=== PATIENT | female | born 1955 | race Caucasian/White ===

== ENCOUNTER 2023-01-09 19:17 | Emergency (ER) | payer MEDICARE, MEDICAID, SELFPAY ==
--- NOTE | 2023-01-09 19:25 | XRR_ITS ---
PROCEDURE INFORMATION: Exam: XR Chest Exam date and time: 01/09/2023 7:37 PM Age: 67 years old Clinical indication: Other: Cant eat drink or sleep; Additional info: Weakness TECHNIQUE: Imaging protocol: Radiologic exam of the chest. Views: 1 view. COMPARISON: No relevant prior studies available. FINDINGS: Tubes, catheters and devices: Possible neurostimulator seen projecting over the left upper abdomen, with leads projecting over the midthoracic spine. Lungs: No consolidation, mass, or pulmonary edema. Pleural spaces: Unremarkable. No pleural effusion. No pneumothorax. Heart/Mediastinum: Unremarkable. No cardiomegaly. Bones/joints: No acute osseous abnormality. XR/XR chest 1V portable [id number] IMPRESSION: No acute findings.
[2023-01-09 19:33] VITALS: BP 187/92; PULSE 79; RESP 18; TEMP 36.8; O2SAT 97; BMI 23.4
--- NOTE | 2023-01-09 19:43 | CTR_ITS ---
PROCEDURE INFORMATION: Exam: CT Head Without Contrast Exam date and time: 01/09/2023 7:50 PM Age: 67 years old Clinical indication: Patient HX: Worsening general weakness with loss of appetite over last two weeks. TECHNIQUE: Imaging protocol: Computed tomography of the head without contrast. Radiation optimization: All CT scans at this facility use at least one of these dose optimization techniques: automated exposure control; mA and/or kV adjustment per patient size (includes targeted exams where dose is matched to clinical indication); or iterative reconstruction. REPORTING DATA: Count of CT and Cardiac NM exams in prior 12 months: This patient has received 0 known CTs and 0 known cardiac nuclear medicine studies in the 12 months prior to the current study. COMPARISON: No relevant prior studies available. RADIATION DOSE METRICS: Total DLP (mGy-cm): 989.88 FINDINGS: Brain: No acute intracranial hemorrhage, acute large territory infarct, or obvious mass lesion. Age appropriate diffuse cerebral volume loss. Chronic white matter changes, likely to be chronic small vessel ischemic changes. Cerebral ventricles: No ventriculomegaly. 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 No air-fluid levels. Mastoid air cells: Visualized mastoid air cells are well aerated. Bones/joints: Unremarkable. No acute fracture. Soft tissues: Unremarkable. CT/CT head wo con* [id number] IMPRESSION: No acute intracranial abnormality.
--- NOTE | 2023-01-09 19:48 | W.ED.WEAKNES ---
HPI - Weakness General: Chief complaint: Weakness Stated complaint: cant eat, drink, weakness Time Seen by Provider: 01/09/23 19:26 Source: patient Mode of arrival: ambulatory Limitations: no limitations History of Present Illness: 67-year-old female states she has had extreme weakness over the last 2 weeks states she is not been wanting to eat or drinks had some difficulty swallowing states she is also had a cough. States she saw her PCP she been on 2 antibiotics and states she is worsened states that today she is so weak that she cannot ambulate she denies any fevers denies any pain. Associated symptoms: Denies chest pain, chills, dysuria, fever(s), headache(s), nausea or vomiting Review of Systems Const: Reports: change in appetite, fatigue and malaise; Denies: fever(s) or chills Eyes: Denies: blurry vision or eye discomfort ENMT: Denies: throat pain or dental pain Card: Denies: chest pain Resp: Reports: non-productive cough; Denies: dyspnea GI: Denies: abdominal pain, nausea, vomiting or diarrhea : Denies: dysuria Musc: Denies: neck pain or back pain Skin/Breast: Denies: rash Neuro: Denies: headache(s) Physical Exam Const: COMMON NORMALS: patient oriented x3 HENMT: COMMON NORMALS: normocephalic and atraumatic HEAD & SCALP: normocephalic and atraumatic Eye: COMMON NORMALS: Equal, round and reactive pupils present and EOMs intact bilaterally PUPIL: Yes Equal, round and reactive pupils present Neck/C-Spine: COMMON NORMALS: full ROM and supple Chest: COMMONS NORMALS: normal inspection of the chest and normal palpation of entire chest wall Resp: COMMON NORMALS: normal respiratory effort, No retractions, No use of accessory muscles and clear to auscultation bilaterally AUSCULTATION: clear to auscultation bilaterally Cardio: COMMON NORMALS: regular rate, regular rhythm and No murmurs present (Cardio) RATE: regular rate RHYTHM: regular rhythm GI: COMMON NORMALS: Normal to inspection, nondistended, normoactive bowel sounds present, Soft to palpation, non-tender and no masses PALPATION: Yes Soft to palpation Extremity: COMMON NORMALS: normal to inspection and full ROM Neuro: COMMON NORMALS: patient oriented x3, moves all extremities and no focal motor deficits Psych: COMMON NORMALS: mental status grossly normal, Normal thought process present and cooperative THOUGHT PROCESS: Normal thought process present Skin: COMMON NORMALS: no rashes or lesions noted and no wounds GENERAL SKIN EXAM: no rashes or lesions noted Course Vital Signs: Vital signs: Vital Signs Temperature 98.2 F 01/09/23 19:33 Pulse Rate 94 01/09/23 23:33 Respiratory Rate 18 01/09/23 19:33 Blood Pressure 137/83 01/09/23 23:33 Pulse Oximetry 97 01/09/23 23:33 Oxygen Delivery Me thod Room Air 01/09/23 20:46 MDM - Weakness Medical Decision Making Patient presents here with generalized weakness along with some difficulty swallowing. All her blood work and imaging here are normal I did offer admission for her weakness she states she does not want to stay in the hospital we will get her follow-up she is to return if worsening she understands agrees to plan. Lab Data 01/09/23 20:10 01/09/23 20:10 Radiology Impressions Chest X-Ray 01/09/23 19:25 IMPRESSION: No acute findings. Head CT 01/09/23 19:43 IMPRESSION: No acute intracranial abnormality. Laboratory Results WBC 9.6 10^3/uL (4.0-10.0) 01/09/23 20:10 RBC 4.55 10^6/uL (4.1-5.3) 01/09/23 20:10 Hgb 14.2 g/dL (11.5-15.3) 01/09/23 20:10 Hct 41.1 % (37.0-47.0) 01/09/23 20:10 MCV 90.3 fl (81-99) 01/09/23 20:10 MCH 31.2 pg (28.0-34.0) 01/09/23 20:10 MCHC 34.5 g/dL (30.0-36.0) 01/09/23 20:10 RDW 12.7 % (12.1-15.1) 01/09/23 20:10 Plt Count 354 10^3/cmm (130-400) 01/09/23 20:10 MPV 9.5 fL (7.4-10.4) 01/09/23 20:10 Neut % (Auto) 44.2 % 01/09/23 20:10 Lymph % (Auto) 45.1 % 01/09/23 20:10 [place] % (Auto) 8.5 % 01/09/23 20:10 Eos % (Auto) 1.6 % 01/09/23 20:10 Baso % (Auto) 0.4 % 01/09/23 20:10 Neut # (Auto) 4.26 10^3/uL (1.8-7.7) 01/09/23 20:10 Lymph # (Auto) 4.4 10^3/uL (0.8-4.8) 01/09/23 20:10 [place] # (Auto) 0.8 10^3/uL (0.2-0.9) 01/09/23 20:10 Eos # (Auto) 0.2 10^3/uL (0.0-0.8) 01/09/23 20:10 Baso # (Auto) 0.0 10^3/uL (0.0-0.1) 01/09/23 20:10 Nucleated RBC % (auto) 0 % 01/09/23 20:10 Nucleated RBCs # 0.0 /100WBC 01/09/23 20:10 Sodium 142 mmol/L (136-145) 01/09/23 20:10 Potassium 3.6 mmol/L (3.5-5.1) 01/09/23 20:10 Chloride 102 mmol/L (98-107) 01/09/23 20:10 Carbon Dioxide 25 mmol/L (22-29) 01/09/23 20:10 Anion Gap 18.6 (5-19) 01/09/23 20:10 BUN 9 mg/dL (8-23) 01/09/23 20:10 Creatinine 0.7 mg/dL (0.5-0.9) 01/09/23 20:10 GFR Calculation 83.5 mL/min (90-130) L 01/09/23 20:10 Glucose 120 mg/dL (65-115) H 01/09/23 20:10 Calculated Osmolality 294 mOsm/kg (285-295) 01/09/23 20:10 Calcium 9.5 mg/dL (8.5-10.5) 01/09/23 20:10 Total Bilirubin 0.5 mg/dL (0.15-1.2) 01/09/23 20:10 AST 16 U/L (0-32) 01/09/23 20:10 ALT 10 U/L (0-33) 01/09/23 20:10 Alkaline Phosphatase 48 U/L (35-105) 01/09/23 20:10 Total Protein 7.1 g/dL (6.6-8.7) 01/09/23 20:10 Albumin 4.5 g/dL (3.5-5.2) 01/09/23 20:10 Globulin 2.6 g/dL (1.3-4.6) 01/09/23 20:10 Lipase 24 U/L (13-60) 01/09/23 20:10 Urine Color Yellow (Yellow) 01/09/23 20:55 Urine Appearance Clear (CLEAR) 01/09/23 20:55 Urine pH 6 (5-7) 01/09/23 20:55 Ur Specific [place] 1.010 (1.005-1.030) 01/09/23 20:55 Urine Protein Neg (Negative) 01/09/23 20:55 Urine Glucose (UA) Norm (Normal) 01/09/23 20:55 Urine Ketones 1+ (Negative) H 01/09/23 20:55 Urine Blood Neg (Negative) 01/09/23 20:55 Urine Nitrate Negative (Negative) 01/09/23 20:55 Urine Bilirubin Neg (Negative) 01/09/23 20:55 Urine Urobilinogen Norm mg/dL (Negative) 01/09/23 20:55 Ur Leukocyte Esterase Trace (Negative) H 01/09/23 20:55 Urine RBC 0-4 /hpf (0-2) H 01/09/23 20:55 Urine WBC 0-4 /hpf (0-5) H 01/09/23 20:55 Ur Squamous Epith Cells 0-4 /hpf (0-5) H 01/09/23 20:55 Amorphous Sediment Not Reportable 01/09/23 20:55 Urine Bacteria Trace /hpf (NONE) 01/09/23 20:55 Urine Mucus Trace /hpf 01/09/23 20:55 Coronavirus 229E (PCR) Not detected (NOT DETECT) 01/09/23 20:10 SARS-CoV-2 (PCR) Not detected (NOT DETECT) 01/09/23 20:10 Discharge Plan Discharge Patient Disposition: Home Clinical Impression: Weakness, Difficulty in swallowing Condition: Stable Discharge Orders: Discharge ED (Routine); Ordered 01/09/23 Ordered By: Nalini Chase Referrals: Josh Talbot DO [Physician] - 1-3 days Discharge Diet: Advance as tolerated Discharge Activity: Resume usual activity Patient Instructions: Weakness (ED), Dysphagia (ED) Coding Level of Care Code ED Transmission Engineer for Rj Koroma
[2023-01-09] MEDS: sodium chloride 0.9% 1,000 ML 999 ML IV (20:09)
[2023-01-09 20:26] LABS: Basophils % 0.4 %; Eosinophils # 0.2 10^3/uL (0.0-0.8); Eosinophils % 1.6 %; Hematocrit 41.1 % (37.0-47.0); Hemoglobin 14.2 g/dL (11.5-15.3); Lymphocytes # 4.4 10^3/uL (0.8-4.8); Lymphocytes % 45.1 %; Mean Corpuscular HGB Conc 34.5 g/dL (30.0-36.0); Mean Corpuscular Hemoglobin 31.2 pg (28.0-34.0); Mean Corpuscular Volume 90.3 fl (81-99); Mean Platelet Volume 9.5 fL (7.4-10.4); Monocytes # 0.8 10^3/uL (0.2-0.9); Monocytes % 8.5 %; Neutrophils # 4.26 10^3/uL (1.8-7.7); Neutrophils % 44.2 %; Nucleated Red Blood Cells % 0 %; Platelet Count 354 10^3/cmm (130-400); Red Blood Count 4.55 10^6/uL (4.1-5.3); Red Cell Distribution Width 12.7 % (12.1-15.1); White Blood Count 9.6 10^3/uL (4.0-10.0)
--- NOTE | 2023-01-09 20:35 | PC.NURSE ---
this food writer was at the nurses station and pts family member came up and asked for a blanket. pts brother stated 'just so you know Yoselin is going to take her anxiety medicine that is prescribed to her.' i told the family member i was waiting on physician to give orders for anxiety medication she could take here but pts brother said pt has already taken medication. pt took 0.25mg of Klonopin at 2020.
[2023-01-09 20:46] VITALS: BP 205/103; PULSE 80; O2SAT 94
[2023-01-09 20:50] LABS: Alanine Aminotransferase 10 U/L (0-33); Albumin Level 4.5 g/dL (3.5-5.2); Alkaline Phosphatase 48 U/L (35-105); Anion Gap 18.6 (5-19); Aspartate Amino Transferase 16 U/L (0-32); Blood Urea Nitrogen 9 mg/dL (8-23); Calcium 9.5 mg/dL (8.5-10.5); Carbon Dioxide 25 mmol/L (22-29); Chloride 102 mmol/L (98-107); Globulin 2.6 g/dL (1.3-4.6); Glomerular Filtration Rate 83.5 mL/min (90-130); Glucose 120 mg/dL (65-115); Lipase 24 U/L (13-60); Osmolality Calculated 294 mOsm/kg (285-295); Potassium 3.6 mmol/L (3.5-5.1); Sodium 142 mmol/L (136-145); Total Bilirubin 0.5 mg/dL (0.15-1.2); Total Protein 7.1 g/dL (6.6-8.7)
[2023-01-09 21:35] LABS: Add Urine Microscopic? YES; Bilirubin Urine Neg (Negative); Blood Urine Neg (Negative); Glucose Urine UA Norm (Normal); Ketones Urine 1+ (Negative); Leukocyte Esterase Urine Trace (Negative); Nitrate Urine Negative (Negative); Protein Urine Neg (Negative); Urine Appearance Clear (CLEAR); Urine Color Yellow (Yellow); Urobilinogen Urine Norm (Negative); pH Urine 6 (5-7)
[2023-01-09 21:37] LABS: Add Urine Culture? No; Bacteria Urine TRACE /hpf; Mucus Urine TRACE /hpf; RBC Urine 0-4 /hpf (0-2); Squamous Epithelial Cell Urine 0-4 /hpf (0-5); WBC Urine 0-4 /hpf (0-5)
[2023-01-09 22:11] LABS: Adenovirus Not Detected (NOT DETECT); Chlamydia Pneumoniae Not Detected (NOT DETECT); Coronavirus 229E,HKU1,NL63,OC4 Not Detected (NOT DETECT); Human Metapneumovirus Not Detected (NOT DETECT); Human Rhinovirus/Enterovirus Not Detected (NOT DETECT); Influenza A Not Detected (NOT DETECT); Influenza A H1 Not Detected (NOT DETECT); Influenza A H1-2009 Not Detected (NOT DETECT); Influenza A H3 Not Detected (NOT DETECT); Influenza B Not Detected (NOT DETECT); Mycoplasma Pneumoniae Not Detected (NOT DETECT); Parainfluenza Virus Type 1 Not Detected (NOT DETECT); Parainfluenza Virus Type 2 Not Detected (NOT DETECT); Parainfluenza Virus Type 3 Not Detected (NOT DETECT); Parainfluenza Virus Type 4 Not Detected (NOT DETECT); Respiratory Syncytial Virus A Not Detected (NOT DETECT); Respiratory Syncytial Virus B Not Detected (NOT DETECT); SARS-COV-2 Not Detected (NOT DETECT)
[2023-01-09 23:33] VITALS: BP 137/83; PULSE 94; O2SAT 97
--- NOTE | 2023-01-10 08:57 | DCPLANNER ---
Addendum entered by Saige Shook 01/13/23 15:06: manager radiation received the following message from the general surgery clinic regarding follow up appointment: called pt no answer mailbox full. 3rd attempt at trying to reach patient. Mailed patient a form to let her know we have been trying to reach her and to call us to schedule and zenaida. On 01/12/23 @ 10:30 Rigoberto Chaudhry Wrote To General Surgery Front Off Called pt mailbox full > 01/12/23 On 01/11/23 @ 11:40 Rigoberto Chaudhry Wrote To General Surgery Front Off Called patient no vm 01/11. Addendum entered by Saige Shook 01/12/23 13:16: manager radiation received the following message from the general surgery clinic regarding follow up appointment: Called pt mailbox full > 01/12/23 On 01/11/23 @ 11:40 Rigoberto Chaudhry Wrote To General Surgery Front Off Called patient no vm 01/11 Original Note: manager radiation had message to schedule a follow up appointment for patient with general surgery. manager radiation sent patients information to the front office staff at general surgery. Patients information will be printed and reviewed. Clinic will call patient with appointment information.
--- NOTE | 2023-01-11 13:38 | DCPLANNER ---
intelligence manager called patient due to no primary care physician - no answer at this time.
--- NOTE | 2023-02-02 11:45 | DCPLANNER ---
manager of medical called patient due to no primary care physician - called phone number [phone] - just got a busy signal.
== END 2023-01-09 23:36 | disposition home or self-care (01) ==
PROVIDERS: Emergency Provider Emergency Medicine
DX: R53.1 Weakness (principal); R13.10 Dysphagia, unspecified
CPT/HCPCS: 70450; 71045; 80053; 81001; 83690; 85025; 87635; 96360; 99285; J7030

== ENCOUNTER 2023-01-12 10:05 | Emergency (ER) | payer MEDICARE, MEDICAID, SELFPAY ==
[2023-01-12 10:11] VITALS: BP 154/73; PULSE 84; RESP 17; TEMP 36.6; O2SAT 93; BMI 21.7
[2023-01-12 10:39] VITALS: BP 154/73; RESP 18; O2SAT 92
--- NOTE | 2023-01-12 10:39 | ECG_ITS ---
[facility] Test Date: 2023-01-12 Pat Name: Yoselin Castaneda Department: Room: Gender: Female Lead Refiner: : 1955 Requested By: Xochitl Hong Order Number: [id number] Erin MD: Tr Alvarez M.D. Measurements Intervals [place] Rate: 81 P: 56 ME: 195 QRS: 60 QRSD: 89 T: 70 QT: 404 QTc: 471 Interpretive Statements SINUS RHYTHM LOW QRS VOLTAGE IN PRECORDIAL LEADS [QRS DEFLECTION < 1.0 mV IN CHEST LEADS] MINIMAL ST DEPRESSION [0.025+ mV ST DEPRESSION] No previous ECG available for comparison Electronically Signed On 01-12-2023 14:46:42 CDT by Tr Alvarez M.D. [id number]
--- NOTE | 2023-01-12 10:39 | XRR_ITS ---
PROCEDURE INFORMATION: Exam: XR Chest Exam date and time: 01/12/2023 11:06 AM Age: 67 years old Clinical indication: Shortness of breath; Additional info: SOB TECHNIQUE: Imaging protocol: Radiologic exam of the chest. Views: 1 view. COMPARISON: CR (CHEST, ) 01/09/2023 7:37 PM FINDINGS: Tubes, catheters and devices: Intact neurostimulator leads terminate at the midthoracic level. Lungs: Unremarkable. No consolidation. Pleural spaces: Unremarkable. No pleural effusion. No pneumothorax. Heart/Mediastinum: Unremarkable. No cardiomegaly. Bones/joints: Unremarkable. XR/XR chest 1V portable [id number] IMPRESSION: No acute findings.
--- NOTE | 2023-01-12 11:02 | CT_ITS ---
WS: [id number] CT NECK WITH CONTRAST HISTORY: dysphagia, muffled voice, smoker TECHNIQUE: Contiguous 5 mm axial images are performed through the neck with intravenous contrast. Sag ittal and coronal reformats are also submitted. All CT scans at [facility] use at least one o f these dose optimization techniques: automated exposure control; mA and/or kV adjustment per patient size (includes targeted exams where dose is matched to clinical indication); or iterative reconstruc tion. CONTRAST: CONTRAST: Omnipaque 350; 100 mL IV. DLP: 148.73 mGy.cm COMPARISON: None available. Nasopharynx, oropharynx, hypopharynx and larynx are unremarkable. No soft tissue masses or abnormal e nhancement. Questionable very minimal prominence of the epiglottis. There is no compromise of the air way. Torus tubarius and fossa of Rosenmuller and parapharyngeal fat are normal. No significant lymphadenopathy is identified. Thyroid gland and salivary glands are normally enhancing with no masses. Mild cervical spondylosis. Visualized portions of the skull base demonstrate no abnormalities. Orbits and globes are within norm al limits. No soft tissue masses. Partially calcified mass in the right maxillary sinus. Probably from chronic sinus disease. No air-fl uid levels. Lung apices are clear. IMPRESSION: 1. No neck mass or adenopathy. 2. Very minimally prominent epiglottis. There is no compromise of the airway. No neck mass.
[2023-01-12 11:08] LABS: Basophils % 0.4 %; Eosinophils # 0.1 10^3/uL (0.0-0.8); Eosinophils % 1.2 %; Hematocrit 41.1 % (37.0-47.0); Hemoglobin 13.7 g/dL (11.5-15.3); Lymphocytes % 34.9 %; Mean Corpuscular HGB Conc 33.3 g/dL (30.0-36.0); Mean Corpuscular Hemoglobin 31.5 pg (28.0-34.0); Mean Corpuscular Volume 94.5 fl (81-99); Mean Platelet Volume 9.5 fL (7.4-10.4); Monocytes # 0.4 10^3/uL (0.2-0.9); Monocytes % 4.8 %; Neutrophils # 4.95 10^3/uL (1.8-7.7); Neutrophils % 58.5 %; Nucleated Red Blood Cells % 0 %; Platelet Count 263 10^3/cmm (130-400); Red Blood Count 4.35 10^6/uL (4.1-5.3); White Blood Count 8.5 10^3/uL (4.0-10.0)
--- NOTE | 2023-01-12 11:23 | ED_ITS ---
HPI - SOB/Dyspnea General: Chief Complaint: Shortness of Breath/Dyspnea Stated Complaint: SOB Time Seen by Provider: 01/12/23 10:19 Source: patient and family Mode of arrival: wheelchair Limitations: no limitations History of Present Illness: HPI Narrative: Patient is a 67-year-old female here with complaints of difficulty swallowing and shortness of breath. She states she has had dysphagia over the past 2 to 3 weeks and it seems to progressively be worsening. She states she is able to hold down liquids and soft foods but family states she gets choked up easily . She states she is not having any pain. She is continuing to take her medications normally. She is an everyday smoker. She does not complain of any chest pain. She has not had any worsening cough apart from her baseline. No increase in sputum production. She states she is scheduled for a barium swallow test in [place] on Tuesday. MD elicited complaint: shortness of breath Pertinent past history: COPD Onset (ago): day(s) Timing: constant Severity: moderate Exacerbating factors: other (swallowing) Relieving factors: nothing Known history of: COPD Associated symptoms: Reports chest congestion; Deny abdominal pain, chest pain, dizziness, extremity pain, fever(s), hemoptysis, lightheadedness, nausea, orthopnea, palpitations, syncope or vomiting Treatment prior to arrival: none Related Data: Home oxygen amount: none Review of Systems Const: Denies: fever(s), chills, body aches, fatigue or malaise ENMT: Reports: other (trouble swallowing); Denies: throat pain or odynophagia Card: Denies: chest pain, palpitations, irregular heart rhythm, edema, swelling of feet/ankles, lightheadedness, syncope, pre-syncope, orthopnea, leg pain with exertion or acrocyanosis Resp: Reports: dyspnea, productive cough and chest congestion; Denies: wheezing or hemoptysis GI: Denies: abdominal pain, nausea, vomiting or diarrhea : Denies: flank pain, dysuria or hematuria Musc: Denies: neck pain, back pain, extremity pain or joint pain Skin/Breast: Denies: rash Neuro: Denies: headache(s), numbness in extremities, weakness in extremities, sensory changes or dizziness Physical Exam Const: COMMON NORMALS: no acute distress, average body habitus, patient oriented x3, no limitations, alert and well nourished GENERAL APPEARANCE: cooperative ORIENTATION/CONSCIOUSNESS: Yes awake, Yes oriented to person, Yes oriented to place and Yes oriented to time HENMT: FACE & SINUS: normal facial exam MOUTH: Normal oral and palatal mucosa present, lip normal and tongue normal TEETH & GINGIVA: Yes edentulous THROAT: posterior oropharynx normal, tonsils normal and uvula midline Neck/C-Spine: COMMON NORMALS: full ROM, no lymphadenopathy, no meningeal signs and no JVD GENERAL: Yes normal visual inspection, No anterior neck swelling and No submandibular swelling Resp: COMMON NORMALS: normal respiratory effort and clear to auscultation [place] aterally AUSCULTATION: clear to auscultation bilaterally Cardio: COMMON NORMALS: no JVD, regular rate and regular rhythm RATE: regular rate RHYTHM: regular rhythm Neuro: COMMON NORMALS: patient oriented x3 SENSORIUM/ORIENTATION: Yes alert, Yes oriented to person, Yes oriented to place and Yes oriented to time MENINGEAL SIGNS: Yes no meningeal signs Skin: COMMON NORMALS: no rashes or lesions noted GENERAL SKIN EXAM: no rashes or lesions noted Course Vital Signs: Vital signs: Vital Signs Temperature 97.8 F 01/12/23 10:11 Pulse Rate 84 01/12/23 10:11 Respiratory Rate 18 01/12/23 10:39 Blood Pressure 175/75 01/12/23 11:47 Pulse Oximetry 93 01/12/23 12:41 Oxygen Delivery Me thod Room Air 01/12/23 12:41 MDM - SOB/Dyspnea Medical Decision Making Patient appears in no acute distress. Her vital signs are stable. She states she is able to hold down liquids, soft foods, and is taking all of her medica tions. She has an upcoming barium swallow test scheduled for Tuesday which I feel is appropriate. Blood work here is unremarkable. Her CXR showing no acute findings. CT neck obtained due to complaint of dysphagia and history of chronic smoking which is essentially normal. Radiologist did comment on a minimally prominent epiglottis. Certainly based on patient's history and clinical presentation I have no concern for acute epiglottitis. Patient most likely has undiagnosed COPD explaining the dyspnea. There is nothing at this time to suggest aspiration pneumonia. Well score of 0 for PE. At this time recommend she follow-up with her primary care provider in continue current plan for barium swallow test on Tuesday. We did discuss obtaining outpatient CT chest scan for lung cancer screening based on her smoking history. Patient and family verbalized understanding of recommendations. Lab Data 01/12/23 11:00 01/12/23 11:00 Labs/Radiology: Radiology Impressions Chest X-Ray 01/12/23 10:39 IMPRESSION: No acute findings. Laboratory Results WBC 8.5 10^3/uL (4.0-10.0) 01/12/23 11:00 RBC 4.35 10^6/uL (4.1-5.3) 01/12/23 11:00 Hgb 13.7 g/dL (11.5-15.3) 01/12/23 11:00 Hct 41.1 % (37.0-47.0) 01/12/23 11:00 MCV 94.5 fl (81-99) 01/12/23 11:00 MCH 31.5 pg (28.0-34.0) 01/12/23 11:00 MCHC 33.3 g/dL (30.0-36.0) 01/12/23 11:00 RDW 13.0 % (12.1-15.1) 01/12/23 11:00 Plt Count 263 10^3/cmm (130-400) 01/12/23 11:00 MPV 9.5 fL (7.4-10.4) 01/12/23 11:00 Neut % (Auto) 58.5 % 01/12/23 11:00 Lymph % (Auto) 34.9 % 01/12/23 11:00 [place] % (Auto) 4.8 % 01/12/23 11:00 Eos % (Auto) 1.2 % 01/12/23 11:00 Baso % (Auto) 0.4 % 01/12/23 11:00 Neut # (Auto) 4.95 10^3/uL (1.8-7.7) 01/12/23 11:00 Lymph # (Auto) 3.0 10^3/uL (0.8-4.8) 01/12/23 11:00 [place] # (Auto) 0.4 10^3/uL (0.2-0.9) 01/12/23 11:00 Eos # (Auto) 0.1 10^3/uL (0.0-0.8) 01/12/23 11:00 Baso # (Auto) 0.0 10^3/uL (0.0-0.1) 01/12/23 11:00 Nucleated RBC % (auto) 0 % 01/12/23 11:00 Nucleated RBCs # 0.0 /100WBC 01/12/23 11:00 Sodium 142 mmol/L (136-145) 01/12/23 11:00 Potassium 3.8 mmol/L (3.5-5.1) 01/12/23 11:00 Chloride 104 mmol/L (98-107) 01/12/23 11:00 Carbon Dioxide 24 mmol/L (22-29) 01/12/23 11:00 Anion Gap 17.8 (5-19) 01/12/23 11:00 BUN 7 mg/dL (8-23) L 01/12/23 11:00 Creatinine 0.7 mg/dL (0.5-0.9) 01/12/23 11:00 GFR Calculation 83.5 mL/min (90-130) L 01/12/23 11:00 Glucose 138 mg/dL (65-115) H 01/12/23 11:00 Calculated Osmolality 294 mOsm/kg (285-295) 01/12/23 11:00 Calcium 9.2 mg/dL (8.5-10.5) 01/12/23 11:00 Total Bilirubin 0.4 mg/dL (0.15-1.2) 01/12/23 11:00 AST 14 U/L (0-32) 01/12/23 11:00 ALT 10 U/L (0-33) 01/12/23 11:00 Alkaline Phosphatase 47 U/L (35-105) 01/12/23 11:00 Total Protein 6.9 g/dL (6.6-8.7) 01/12/23 11:00 Albumin 4.3 g/dL (3.5-5.2) 01/12/23 11:00 Globulin 2.6 g/dL (1.3-4.6) 01/12/23 11:00 Discharge Plan Discharge Patient Disposition: Home Clinical Impression: Difficulty in swallowing Qualifiers: Dysphagia type: unspecified Qualified Code(s): R13.10 - Dysphagia, unspecified Dyspnea Qualifiers: Dyspnea type: unspecified Qualified Code(s): R06.00 - Dyspnea, unspecified Condition: Stable Prescriptions: No Action atorvastatin 20 mg tablet 20 mg PO DAILY lisinopril 20 mg tablet 20 mg PO BID clonazepam 0.5 mg tablet 0.5 mg PO DAILY sertraline 100 mg tablet 100 mg PO DAILY olanzapine 5 mg tablet 5 mg PO DAILY atenolol 25 mg tablet 25 mg PO BID trazodone 100 mg tablet 100 mg PO .BEDTIME metformin 1,000 mg tablet 1,000 mg PO BID naproxen sodium 220 mg Tablet 220 mg PO BID PRN (Reason: Pain) prazosin 2 mg capsule 2 mg PO BID Ingrezza 40 mg capsule 40 mg PO DAILY Discharge Orders: Discharge ED (Routine); Ordered 01/12/23 Ordered By: Xochitl Hong Referrals: Patrica Tam MD [Primary Care Provider] - Activity Restrictions/Additional Instructions: As we discussed please follow-up with current plan of barium swallow on Tuesday. You may continue to follow-up with primary care as well. I will place a case management referral to get you set up with a primary care provider in [facility]. You need to return to the emergency department for worsening shortness of breath, difficulty breathing, worsening cough, fevers, inability to swallow liquids/soft food/location, throat pain, or any other concerns you may have. Coding Level of Care Code ED Restaurant District Manager for Rj Koroma
[2023-01-12 11:30] LABS: Alanine Aminotransferase 10 U/L (0-33); Albumin Level 4.3 g/dL (3.5-5.2); Alkaline Phosphatase 47 U/L (35-105); Anion Gap 17.8 (5-19); Aspartate Amino Transferase 14 U/L (0-32); Blood Urea Nitrogen 7 mg/dL (8-23); Calcium 9.2 mg/dL (8.5-10.5); Carbon Dioxide 24 mmol/L (22-29); Chloride 104 mmol/L (98-107); Globulin 2.6 g/dL (1.3-4.6); Glomerular Filtration Rate 83.5 mL/min (90-130); Glucose 138 mg/dL (65-115); Osmolality Calculated 294 mOsm/kg (285-295); Potassium 3.8 mmol/L (3.5-5.1); Sodium 142 mmol/L (136-145); Total Bilirubin 0.4 mg/dL (0.15-1.2); Total Protein 6.9 g/dL (6.6-8.7)
[2023-01-12] MEDS: sodium chloride 0.9% 1,000 ML 999 ML IV (11:39)
[2023-01-12] MEDS: iohexol 350 mg/mL 500 mL Btl (per mL) IV (11:46)
[2023-01-12 11:47] VITALS: BP 175/75; O2SAT 99
[2023-01-12 12:41] VITALS: O2SAT 93
[2023-01-12 13:06] VITALS: BP 188/69; PULSE 62; RESP 18; O2SAT 98
--- NOTE | 2023-01-13 08:49 | DCPLANNER ---
manager therapy had message to speak with patient about getting established with a primary care physician. manager therapy called phone number [phone] - person answered the phone stated that they knew a Yoselin but she was not there. manager therapy left a message to have Yoselin call case finisher back.
== END 2023-01-12 13:07 | disposition home or self-care (01) ==
PROVIDERS: Emergency Provider Physician Assistant; PCP Internal Medicine
DX: R13.10 Dysphagia, unspecified (principal); R06.00 Dyspnea, unspecified
CPT/HCPCS: 36415; 70491; 71045; 80053; 85025; 93005; 99285; J7030; Q9967

== ENCOUNTER 2023-05-03 09:09 | Outpatient (CLI) | payer OTHER, MEDICAID, SELFPAY ==
--- NOTE | 2023-05-03 09:15 | FL_ITS ---
WS: [id number] MODIFIED BARIUM SWALLOW TECHNIQUE: Modified barium swallow with speech therapy using multiple consistencies. FLUOROSCOPY TIME: 3min [id number] # of spot films: 1 CLINICAL INFORMATION: Other dysphagia COMPARISON: None. FINDINGS: Multiple consistencies utilized. Delayed residuals in the vallecula which cleared with additional liq uids. Penetration with thin liquids. No leah aspiration. Delayed transit of the barium tablet in the proximal esophagus with dysmotility and spasm. Barium tab let cleared with additional fluids. No visualized stricture. Prominent anterior hypertrophic changes mid cervical spine. Cardiac pacer. IMPRESSION: 1. Delayed oropharyngeal phase with early spillage. 2. Penetration with thin liquids. No leah aspiration. 3. Esophageal dysmotility with spasm. No visualized stricture. 4. See speech therapy consultation for recommendations
== END 2023-05-03 09:10 | disposition home or self-care (01) ==
LOC: RAD 09:09
PROVIDERS: PCP Internal Medicine; Visit Provider Internal Medicine
DX: R13.19 Other dysphagia (principal)
CPT/HCPCS: 74230; 92611

== ENCOUNTER 2023-05-12 13:32 | Outpatient (CLI) | payer MEDICARE, MEDICAID, SELFPAY ==
--- NOTE | 2023-05-12 13:36 | CT_ITS ---
WS: [id number] CT scan of the chest without IV contrast, additional two-dimensional coronal and sagittal reconstruct ion was performed. 05/12/2023 Clinical Data: PULMONARY NODULE Comparison: Portable chest, 01/12/2023 DLP: 229.[address] scans at [facility] use at least one of these dose optimization techniques: automated e xposure control; mA and/or kV adjustment per patient size (includes targeted exams where dose is matc hed to clinical indication); or iterative reconstruction. Findings: No nodules, masses or effusions are seen. There are small fragments in the posterior left lower lobe which may be residual from a previous surgery, procedure or trauma. The heart size is normal with no pericardial effusion. There is a cardiac pacemaker with wires ending in the right ventricle. The pulm onary arterial system and thoracic aorta demonstrate no abnormalities or dilatations. The trachea bif urcates normally into the bronchi. There is no axillary or significant mediastinal adenopathy. There are epidural stimulator wires ending in the epidural thoracic space. The upper abdomen demonstrates a PEG tube in the stomach. Impression: 1. Negative for lung masses or nodules. 2. Small dense fragments or debris in the posterior aspect of left lower lobe. 3. Cardiac pacemaker, epidural stimulator wires and PEG tube.
== END 2023-05-12 13:33 | disposition home or self-care (01) ==
LOC: RAD 13:32
PROVIDERS: PCP Internal Medicine; Visit Provider Internal Medicine
DX: Z18.9 Retained foreign body fragments, unspecified material (principal); Z93.4 Other artificial openings of gastrointestinal tract status
CPT/HCPCS: 71250

== ENCOUNTER → 2023-05-31 10:42 | Outpatient (BNVA) | payer MEDICARE, MEDICAID, SELFPAY | PROVIDERS: PCP Internal Medicine; Visit Provider Surgery | DX: Z43.1 Encounter for attention to gastrostomy (principal) | CPT/HCPCS: 99204 ==

== ENCOUNTER 2023-07-22 11:56 | Emergency (ER) | payer MEDICARE, MEDICAID, SELFPAY ==
[2023-07-22 12:18] VITALS: BP 182/89; PULSE 90; RESP 17; TEMP 36.9; O2SAT 96
--- NOTE | 2023-07-22 12:27 | ED_ITS ---
HPI - Extremity Problem 2 General: Chief complaint: Extremity Injury, Lower Stated complaint: [facility] sent, right leg pain Time Seen by Provider: 07/22/23 12:08 History of Present Illness: Patient presents to the ER from [facility] to be checked out for right calf pain. Patient states she is climbing on the bed and slipped and bent her foot in a weird angle now she is having pain in the posterior calf. Patient said this happened on Tuesday night and the pain is progressively getting worse and is unresponsive to Tylenol. Patient says she was sent over here to by [facility] for further evaluation and to rule out blood clot. Patient has no history of blood clots but is on no anticoagulation. Review of Systems 2 General: Reports: 10 or more systems reviewed and unremarkable except in HPI and below Physical Exam 2 Const: COMMON NORMALS: no acute distress, average body habitus, patient oriented x3, no limitations, healthy appearing, alert and well nourished HENMT: COMMON NORMALS: normocephalic, atraumatic, hearing grossly normal bilaterally, external ears normal, Normal external nose present, moist oral mucous membranes and oropharynx normal HEAD & SCALP: normocephalic and atraumatic NOSE: Normal external nose present EXTERNAL EAR: Yes external ears normal Neck/C-Spine: COMMON NORMALS: no JVD Chest: COMMONS NORMALS: normal inspection of the chest and normal palpation of entire chest wall Resp: COMMON NORMALS: normal respiratory effort, No retractions, No use of accessory muscles and clear to auscultation bilaterally AUSCULTATION: clear to auscultation bilaterally Cardio: COMMON NORMALS: no JVD, regular rate, regular rhythm, S1 normal heart sound present, S2 normal heart sound present, No gallops present (Cardio), No clicks present (Cardio), No murmurs present (Cardio) and No rub (Cardio) R ATE: regular rate RHYTHM: regular rhythm HEART SOUNDS: S1 normal heart sound present and S2 normal heart sound present GI: COMMON NORMALS: Normal to inspection, nondistended, normoactive bowel sounds present, Soft to palpation, non-tender, No hepatosplenomegaly present and no masses PALPATION: Yes Soft to palpation and Yes No hepatosplenomegaly present Extremity: NARRATIVE EXTREMITY EXAM: Right lower extremity calf mildly tender to palpation, no swelling or erythema noted. Abrasions noted on right knee. Patient is also sensitive to palpation down the Achilles tendon. No obvious deformity or step-off. Neuro: COMMON NORMALS: patient oriented x3 SENSORIUM/ORIENTATION: Yes alert Course 2 Vital Signs: Vital signs: Vital Signs Temperature 98.4 F 07/22/23 15:52 Pulse Rate 78 07/22/23 15:52 Respiratory Rate 16 07/22/23 15:52 Blood Pressure 182/89 07/22/23 15:52 Pulse Oximetry 97 07/22/23 15:52 Oxygen Delivery Me thod Room Air 07/22/23 12:30 MDM - Extremity (Nontraumatic) Medical Decision Making Patient physical exam, lab work evaluation and ultrasound performed. All of which were negative for DVT. Patient's D-dimer was elevated slightly and magnesium was slightly low. Patient received 60 mg Toradol IM which controlled her pain very well. Patient be sent home with pain medicine. Differential Diagnosis Unlikely herpes zoster, gout, cellulitis, superficial thrombophlebitis, deep venous thrombosis of upper extremity, lower extremity edema or deep vein thrombosis of lower extremity Medical Records I reviewed the patient's medical records. Lab Data I reviewed the patient's lab results. 07/22/23 13:08 07/22/23 13:08 Laboratory Results WBC 7.22 10^3/uL (3.29-11.43) 07/22/23 13:08 RBC 4.02 10^6/uL (3.85-5.65) 07/22/23 13:08 Hgb 11.50 g/dL (11.27-16.99) 07/22/23 13:08 Hct 35.5 % (36-47) L 07/22/23 13:08 MCV 88.3 fl (85-98) 07/22/23 13:08 MCH 28.6 pg (27-33) 07/22/23 13:08 MCHC 32.4 g/dL (30-55) 07/22/23 13:08 RDW 14.6 % (12.1-15.1) 07/22/23 13:08 Plt Count 349 10^3/cmm (157-399) 07/22/23 13:08 MPV 9.5 fL (7.4-10.4) 07/22/23 13:08 Neut % (Auto) 56.2 % 07/22/23 13:08 Lymph % (Auto) 32.0 % 07/22/23 13:08 [place] % (Auto) 6.1 % 07/22/23 13:08 Eos % (Auto) 4.8 % 07/22/23 13:08 Baso % (Auto) 0.6 % 07/22/23 13:08 Neut # (Auto) 4.06 10^3/uL (1.8-7.7) 07/22/23 13:08 Lymph # (Auto) 2.3 10^3/uL (0.8-4.8) 07/22/23 13:08 [place] # (Auto) 0.4 10^3/uL (0.2-0.9) 07/22/23 13:08 Eos # (Auto) 0.4 10^3/uL (0.0-0.8) 07/22/23 13:08 Baso # (Auto) 0.0 10^3/uL (0.0-0.1) 07/22/23 13:08 Nucleated RBC % (auto) 0 % 07/22/23 13:08 Nucleated RBCs # 0.0 /100WBC 07/22/23 13:08 D-Dimer 1.57 ug/mLFEU (0-0.59) H 07/22/23 13:08 Sodium 140 mmol/L (136-145) 07/22/23 13:08 Potassium 3.7 mmol/L (3.5-5.1) 07/22/23 13:08 Chloride 109 mmol/L (98-107) H 07/22/23 13:08 Carbon Dioxide 21 mmol/L (22-29) L 07/22/23 13:08 Anion Gap 13.7 (5-19) 07/22/23 13:08 BUN 8 mg/dL (8-23) 07/22/23 13:08 Creatinine 1.0 mg/dL (0.5-0.9) H 07/22/23 13:08 GFR Calculation 55.3 mL/min (90-130) L 07/22/23 13:08 Glucose 112 mg/dL (65-115) 07/22/23 13:08 Calculated Osmolality 289 mOsm/kg (285-295) 07/22/23 13:08 Calcium 8.7 mg/dL (8.5-10.5) 07/22/23 13:08 Magnesium 1.6 mg/dL (1.7-2.3) L 07/22/23 13:08 Total Bilirubin 0.2 mg/dL (0.15-1.2) 07/22/23 13:08 AST 20 U/L (0-32) 07/22/23 13:08 ALT 17 U/L (0-33) 07/22/23 13:08 Alkaline Phosphatase 86 U/L (35-105) 07/22/23 13:08 Total Protein 6.7 g/dL (6.6-8.7) 07/22/23 13:08 Albumin 3.8 g/dL (3.5-5.2) 07/22/23 13:08 Globulin 2.9 g/dL (1.3-4.6) 07/22/23 13:08 All radiology interpretation(s) finalized by discharge Discharge Plan Discharge Patient Disposition: Home Clinical Impression: Strain of right calf muscle Condition: Stable Prescriptions: New tramadol 50 mg tablet 50 mg PO Q8H PRN (Reason: pain) Qty: 14 0RF No Action atorvastatin 20 mg tablet 20 mg PO DAILY lisinopril 20 mg tablet 20 mg PO BID clonazepam 0.5 mg tablet 0.5 mg PO DAILY sertraline 100 mg tablet 100 mg PO DAILY olanzapine 5 mg tablet 5 mg PO DAILY trazodone 100 mg tablet 100 mg PO .BEDTIME metformin 1,000 mg tablet 1,000 mg PO BID naproxen sodium 220 mg Tablet 220 mg PO BID PRN (Reason: Pain) prazosin 2 mg capsule 2 mg PO BID Ingrezza 40 mg capsule 40 mg PO DAILY Discharge Orders: Discharge ED (Routine); Ordered 07/22/23 Ordered By: Juni De La Cruz Referrals: Patrica Tam MD [Primary Care Provider] - 1 week Patient Instructions: Muscle Strain (ED), Opioid Safety, Pain Management Activity Restrictions/Additional Instructions: Your workup shows you do not have a blood clot. Is thought to be a muscle strain. There will be pain medicine sent to your pharmacy to take as needed as directed. Otherwise follow-up with your family practice physician in 1 week for further evaluation and treatment. If your pain is uncontrolled please return to the ER. Coding Level of Care Code ED Progressive Care Manager for Rj Koroma
[2023-07-22 12:30] VITALS: BP 182/89; PULSE 78; RESP 16; O2SAT 97
[2023-07-22] MEDS: ketorolac 60 mg/2 mL INJ IM (12:38)
[2023-07-22 13:16] LABS: Basophils % 0.6 %; Eosinophils # 0.4 10^3/uL (0.0-0.8); Eosinophils % 4.8 %; Hematocrit 35.5 % (36-47); Lymphocytes # 2.3 10^3/uL (0.8-4.8); Mean Corpuscular HGB Conc 32.4 g/dL (30-55); Mean Corpuscular Hemoglobin 28.6 pg (27-33); Mean Corpuscular Volume 88.3 fl (85-98); Mean Platelet Volume 9.5 fL (7.4-10.4); Monocytes # 0.4 10^3/uL (0.2-0.9); Monocytes % 6.1 %; Neutrophils # 4.06 10^3/uL (1.8-7.7); Neutrophils % 56.2 %; Nucleated Red Blood Cells % 0 %; Platelet Count 349 10^3/cmm (157-399); Red Blood Count 4.02 10^6/uL (3.85-5.65); Red Cell Distribution Width 14.6 % (12.1-15.1); White Blood Count 7.22 10^3/uL (3.29-11.43)
[2023-07-22 13:27] LABS: D Dimer 1.57 ug/mLFEU (0-0.59)
[2023-07-22 13:30] LABS: Alanine Aminotransferase 17 U/L (0-33); Albumin Level 3.8 g/dL (3.5-5.2); Alkaline Phosphatase 86 U/L (35-105); Anion Gap 13.7 (5-19); Aspartate Amino Transferase 20 U/L (0-32); Blood Urea Nitrogen 8 mg/dL (8-23); Calcium 8.7 mg/dL (8.5-10.5); Carbon Dioxide 21 mmol/L (22-29); Chloride 109 mmol/L (98-107); Globulin 2.9 g/dL (1.3-4.6); Glomerular Filtration Rate 55.3 mL/min (90-130); Glucose 112 mg/dL (65-115); Magnesium 1.6 mg/dL (1.7-2.3); Osmolality Calculated 289 mOsm/kg (285-295); Potassium 3.7 mmol/L (3.5-5.1); Sodium 140 mmol/L (136-145); Total Bilirubin 0.2 mg/dL (0.15-1.2); Total Protein 6.7 g/dL (6.6-8.7)
--- NOTE | 2023-07-22 13:30 | USCV_ITS ---
Yoselin Castaneda Age: 67 Gender: F : 1955 Exam Date: 07/22/2023 14:20 Ordering Phys: Juni De La Cruz DO Technologist: SHARA Exam Location: [facility] – [place] Indication: LE Pain HISTORY: Lower extremity pain. PROCEDURES: Venous duplex imaging was performed in only the right lower extremity. The following venous structures were evaluated: common femoral vein, profunda vein, proximal portion of the greater saphenous vein, superficial femoral vein, and the popliteal vein. In addition, the posterior tibial and peroneal trunk were evaluated. Serial compression, augmentation maneuvers, and spectral Doppler flow evaluation were performed. FINDINGS: No evidence of DVT seen in any vessel visualized at this time. CONCLUSIONS No evidence of RIGHT lower extremity DVT. Moise Overton MD (Electronically Signed) Final Date: 22 July 2023 16:24 S
[2023-07-22 13:50] LABS: Slide Review Slide Review Perform
[2023-07-22 15:52] VITALS: BP 182/89; PULSE 78; RESP 16; TEMP 36.9; O2SAT 97
== END 2023-07-22 15:52 | disposition home or self-care (01) ==
PROVIDERS: Emergency Provider Emergency Medicine; PCP Internal Medicine
DX: S86.111A Strain of other muscle(s) and tendon(s) of posterior muscle group at lower leg level, right leg, initial encounter (principal); Z79.84 Long term (current) use of oral hypoglycemic drugs; W18.49XA Other slipping, tripping and stumbling without falling, initial encounter; M79.605 Pain in left leg
CPT/HCPCS: 80053; 83735; 85025; 85378; 93971; 96372; 99284; J1885